=== PATIENT | male | born 1985 | race Caucasian/White ===

== ENCOUNTER 2024-04-18 13:24 | Emergency (ER) | payer SELFPAY ==
[2024-04-18 13:25] VITALS: BP 143/105; PULSE 121; RESP 18; TEMP 36.6; O2SAT 98; BMI 21.9
[2024-04-18 13:56] LABS: Absolute Lymphocyte Count 1.85 X10^3/uL (0.83-4.51); Absolute Neutrophil Count 7.9 X10^3/uL (2.0-7.7); Basophil# 0.05 X10^3/uL; Basophil% 0.5 % (0-1); Eosinophil# 0.02 X10^3/uL; Eosinophils% 0.2 % (0-5); Hemoglobin 16.4 g/dL (13.0-16.5); Lymphocyte # 1.85 X10^3/ul (0.83-4.51); Lymphocyte % 17.6 % (19-41); Mean Corp Hgb Conc 33.5 g/dL (32-36); Mean Corpuscular Hgb 32.3 pg (27.0-32.0); Mean Corpuscular Volume 96.5 fL (80-94); Mean Platelet Vol. 9.8 fl (6.2-12.0); Monocyte# 0.69 X10^3/uL; Monocyte% 6.6 % (0-10); NRBC Flagged by Analyzer 0 % (0-5); Neutrophil # 7.86 X10^3/uL (2.7-7.7); Neutrophil % 74.8 % (47-70); Platelet Count 316 K/mm3 (150-450); RBC Distribution Width CV 13.6 % (11.6-14.6); Red Blood Count 5.08 M/mm3 (4.6-6.2); White Blood Count 10.5 K/mm3 (4.4-11.0)
[2024-04-18 14:08] LABS: Anion Gap 7 (5-15); BUN 8 mg/dL (7-18); BUN/Creat Ratio 9.6 RATIO (10-20); Calcium,Total 9.5 mg/dL (8.5-10.1); Chloride 106 mmol/L (98-107); Creatinine, Serum 0.83 mg/dL (0.70-1.30); EST Glomerular Filtration Rate 110 mL/min (>60); Est Glom Filt Rate - Afr Amer 133 mL/min (>60); Estimated Creatinine Clearance 115.04 ml/min; Glucose 72 mg/dL (74-106); Potassium 3.7 mmol/L (3.5-5.1); Sodium Level 139 mmol/L (136-145)
[2024-04-18 14:24] VITALS: BP 137/84; PULSE 91; RESP 18; O2SAT 95
--- NOTE | 2024-04-18 14:40 | EDS_ITS ---
HPI History of Present Illness Chief Complaint: Suicidal [facility] Medical History (Updated 04/18/24 @ 14:22 by Lila Gonzalez) Bipolar 1 disorder Schizophrenia Allergy/AdvReac Type Severity Reaction Status Date / Time No Known Allergies Allergy Verified 04/18/24 13:24 Surgical History no surgical history Social History Smoking Status: Current every day smoker tobacco type: cigarettes EXAM Physical Exam Const Vital Signs: 04/18/24 13:25 04/18/24 14:24 Temperature 97.8 F Temperature Source Temporal Pulse Rate 121 H 91 Respiratory Rate 18 18 Blood Pressure 143/105 H 137/84 H Blood Pressure Mean 117 101 Pulse Ox 98 95 Oxygen Delivery Method Room Air Room Air MDM MDM MDM Narrative Medical decision making narrative: HISTORY OF PRESENT ILLNESS: 39-year-old male history of schizophrenia, PTSD who has been med noncompliant for last 6 months presents with suicidal ideation with plan. States he was hospitalized beginning of the year [facility]. He states he is unsure of how he found himself in [facility] from [place]. He states today he felt like he wanted to hurt himself. Notes prior history of suicide attempts. Denies any specific plan. Denies having access to firearm. Notes auditory hallucinations. Denies visual hallucinations. Denies any homicidal ideation. REVIEW OF SYSTEMS: Pertinent positives: Suicidal ideation Pertinent negatives: Chest pain, shortness of breath PHYSICAL EXAM: Nursing triage notes reviewed, Vital signs reviewed Constitutional: please see mdm HENT: MMM Eyes: Pupils equal round and reactive to light, Extraocular muscles intact Neck: No stridor, no JVD, full neck ROM Lungs: Clear to auscultation, No wheezing or rales. No increased work of breathing, no conversational dyspnea, no accessory muscle use, no nasal flaring. No respiratory distress noted Heart: Regular rate and rhythm, No murmurs, No rubs and No gallops, 2+ distal pulses (radial, femoral, posterior tibial) in all extremities Abdomen: Soft, there is no tenderness, rigidity, rebound or guarding, no obvious peritoneal signs, no palpable pulsatile abdominal masses, no auscultated abdominal bruit : No CVAT Extremities: No edema Neuro: No focal neurological deficits, cranial nerves II through XII intact, 5/5 strength in all extremities. Intact sensation to light touch in all extremities, 2+ reflexes bilateral patella tendons. Normal gait. No ataxia. Skin: No rash or lesions noted Psych: Normal mood, goal-directed thought process, nontangential thoughts. Normal affect. MEDICAL DECISION MAKING: Chief Complaint: Suicidal ideation with plan External records reviewed:Reviewed prior records: No recent psychiatric encounters noted Factors affecting care: Schizophrenia, PTSD, bipolar 1 Social determinants of health: History mental health History obtained from others: none Consults: Behavioral health medical social consultant MDM Narrative: Patient was initially tachycardic, hypertensive with a blood pressure 143/105. Exam without focal abnormalities. No signs of trauma. No cardiopulmonary maladies. No focal neurologic deficits. Patient had a normal mood, goal- directed thought process and was not tangential and manic or psychotic. I considered the following differential diagnosis: Decompensated schizophrenia, medical compliance, suicidal ideation Protocol orders were placed including urine drug screen, serum alcohol level, CBC, BMP, COVID test per protocol secondary to adverse department of conditions including high acuity and high volume. Medical clearance labs were undertaken CBC with no leukocytosis, no anemia, no thrombocytopenia BMP without evidence of significant electrolyte abnormalities, no anion gap, no acute kidney injury. Serum alcohol negative COVID/flu negative EKG with sinus bradycardia rate of 50, normal axis, normal QT, no STEMI I treat the patient with p.o. Zyprexa per his request Awaiting behavioral health evaluation after medical clearance. Behavioral health evaluate the patient and recommended admission to [facility] ([place], [place]). [place] signed, transfer form signed. Waiting transport. The patient and/or family, caregivers express understanding. The patient and/or family, caregivers agrees with the plan. Shared decision making: I will have a discussion with the patient and or visitors regarding risk/benefits of further testing or admission. They will be made aware of of the risk/benefits inherent in this decision they will be given the opportunity to voice understanding. Total critical care time today provided was at least 0 minutes. This excludes separately billable procedures. Critical care time (if documented) is secondary to the patient having high probability of clinically significant/life threatening deterioration in the patient's condition which required my urgent intervention. Impression: 1. Suicide ideation 2. History of schizophrenia 3. Medication noncompliance Dispo: Admit to inpatient psychiatric facility This note was generated with [employer] dictation software. It may contain incorrect words, spelling, and punctuation that were not noted in review of the chart prior to signing. Lab Data Labs: Laboratory Results - last 24 hr 04/18/24 04/18/24 13:45 13:50 WBC 10.5 RBC 5.08 Hgb 16.4 Hct 49.0 MCV 96.5 H MCH 32.3 H MCHC 33.5 RDW Std Deviation 49.0 H RDW Coeff of Luz 13.6 Plt Count 316 MPV 9.8 Immature Gran % (Auto) 0.300 Neut % (Auto) 74.8 H Lymph % (Auto) 17.6 L [place] % (Auto) 6.6 Eos % (Auto) 0.2 Baso % (Auto) 0.5 Absolute Neuts (auto) 7.9 H Absolute Lymphs (auto) 1.85 Nucleated RBC % 0 Sodium 139 Potassium 3.7 Chloride 106 Carbon Dioxide 26.0 Anion Gap 7 BUN 8 Creatinine 0.83 Estim Creat Clear Calc 115.04 Est GFR (MDRD) Af Amer 133 Est GFR (MDRD) Non-Af 110 BUN/Creatinine Ratio 9.6 L Glucose 72 L Calcium 9.5 Urine Opiates Screen NEGATIVE Urine Methadone Screen NEGATIVE Ur Barbiturates Screen NEGATIVE Ur Phencyclidine Scrn NEGATIVE Ur Amphetamines Screen NEGATIVE MDMA (Ecstasy) Screen NEGATIVE U Benzodiazepines Scrn NEGATIVE Urine Cocaine Screen NEGATIVE U Cannabinoids Screen POSITIVE H Ur Drug Screen Comment Ethyl Alcohol 17.0 Discharge Plan Triage Chief Complaint: Suicidal Other Complaint: Mental Health ED Provider: Isaiah Givens Dx/Rx/DC Orders Primary Care Provider: Care Physician,No Primary Referrals: [facility] Doctor,Out of [Non-Staff] - Print Language: German
--- NOTE | 2024-04-18 15:05 | NURSING ---
FAXED CHART TO [facility]
[2024-04-18] MEDS: OLANZapine 5 MG/TAB TAB.RAPDIS PO (15:39)
--- NOTE | 2024-04-18 15:54 | NURSING ---
[facility] IN ROOM
[2024-04-18 16:48] LABS: Amphetamine Urine VISTA NEGATIVE (<1000 ng/mL); Barbiturate Urine VISTA NEGATIVE (< 200 ng/mL); Benzodiazepine Urine VISTA NEGATIVE (< 200 ng/mL); Cocaine Urine VISTA NEGATIVE (< 300 ng/mL); Ecstacy Urine VISTA NEGATIVE (< 500 ng/mL); Methadone Urine VISTA NEGATIVE (< 300 ng/mL); PCP Urine VISTA NEGATIVE (< 25 ng/mL); THC Urine VISTA POSITIVE (< 50 ng/mL); Vista UDS pH Range 5
--- NOTE | 2024-04-18 18:33 | EKG12_ITS ---
Test Reason : [facility] Blood Pressure : / mmHG Vent. Rate : 050 BPM Atrial Rate : 050 BPM P-R Int : 156 ms QRS Dur : 092 ms QT Int : 404 ms P-R-T Axes : 075 056 056 degrees QTc Int : 368 ms Sinus bradycardia Otherwise normal ECG Confirmed by TAWNYA GREENE, FITZ ([id number]), editor magazine EVANGELINA FRIAS ([id number]) on 04/20/2024 6:26:41 AM Referred By: Confirmed By:FITZ BOWLING MD
[2024-04-18 19:03] LABS: CPK Total, Creatine Kinase 619 U/L (39-308)
[2024-04-18 21:08] VITALS: BP 122/80; PULSE 64; RESP 16; TEMP 36.6; O2SAT 99
== END 2024-04-18 23:45 ==
PROVIDERS: Emergency Provider Emergency Medicine; Visit Provider Emergency Medicine
DX: F20.9 Schizophrenia, unspecified (principal); F31.9 Bipolar disorder, unspecified; Z91.148 Patient's other noncompliance with medication regimen for other reason; Z11.52 Encounter for screening for COVID-19; R45.851 Suicidal ideations; Z91.51 Personal history of suicidal behavior; R00.1 Bradycardia, unspecified; F17.210 Nicotine dependence, cigarettes, uncomplicated; F43.10 Post-traumatic stress disorder, unspecified
CPT/HCPCS: 36415; 80048; 80307; 82077; 82550; 85025; 87635; 93005; 99285